=== PATIENT | male | born 1935 | race Caucasian/White ===

== ENCOUNTER 2016-09-04 15:21 | Inpatient (IN) | payer MEDICARE ==
[~2016-09-04] VITALS: Ht 162.6 cm; Wt 55.1 kg
[2016-09-04 15:30] VITALS: BP 180/95; PULSE 142; RESP 20; TEMP 98.7; O2SAT 92
[2016-09-04] MEDS ORDERED: DILTIAZEM HCL 25 MG/5 ML VIAL IV ONE ×2 (15:45→16:45)
[2016-09-04] MEDS ORDERED: SODIUM CHLORIDE 0.9% FLUSH 10 ML FLUSH IVF PRN (15:45)
--- NOTE | 2016-09-04 15:47 | PD ---
HPI Chief Complaint: Fall Time Seen by Provider: 15:42 Travel History International Travel<30 days: No Contact w/Intl Traveler<30days: No Traveled to known affect area: No History of Present Illness HPI Patient comes in by EMS from his primary care physician's office after having found a questionable C2 fracture on x-ray. Patient reportedly had a mechanical fall 4 days ago landing on his face. Patient is having excruciating pain in his neck more on the left than the right since the fall. Patient also reporting pain over his nasal bone. Patient denies any radiation of the pain. Denies any chest pain, shortness of breath, headache, numbness or tingling or , loss of bowel or bladder, chest pain, shortness of breath, loss of consciousness, nausea, vomiting, abdominal pain, or back pain. EMS noted en route patient. A. fib with RVR. Patient currently has a pacemaker and defibrillator. Patient denies any symptoms from this or noting his defibrillator to fire. Patient did drive himself to his primary care doctor's office today. Patient thinks his scanner supervisor is Dr. Doan but is uncertain. Patient does not know any of his medication, but thinks he takes 2 low-dose aspirin daily. Patient uncertain of all his medical history. PFSH Past Medical History Arthritis: No Social History Tobacco Use: No Substance Use: No Allergies-Medications (Allergen,Severity, Reaction): Coded Allergies: No Known Allergies (Unverified , 09/04/16) Review of Systems ROS Limitations: Poor Historian Except as stated in HPI: all other systems reviewed are Neg Physical Exam Exam Limitations: Poor Historian Narrative GENERAL: Well-developed, well nourished, in no acute distress, and non-ill appearing. SKIN: Superficial abrasion noted right forehead and nasal bridge. HEAD: Atraumatic. Normocephalic. EYES: Pupils equal and round. EOMI. No scleral icterus. No injection or drainage. ENT: No nasal bleeding or discharge. Mucous membranes pink and moist. NECK: Trachea midline. C-collar in place. CARDIOVASCULAR: Irregular rate and rhythm. No murmur appreciated. RESPIRATORY: No accessory muscle use. No respiratory distress. Clear to auscultation. Breath sounds equal bilaterally. MUSCULOSKELETAL: No obvious deformities. No clubbing. No cyanosis. No edema. Full range of motion. Shoulder:FROM equal BL with passive flexion, extension, Abduction, Adduction, internal/external rotation, and pronation/supination. Sensation equal BL deltoid muscles. Pulses equal BL distal to injury. Capillary refill less than 2 seconds distal to injury and equal BL. FROM distal to injury and equal BL. Strength distal to injury equal BL. NV intact distal to injury equal BL. Flexion and extension of thumb equal BL. Equal strength and movement with abduction/adductions of BL fingers. Title I Director strength equal BL. NEUROLOGICAL: Awake and alert. No obvious cranial nerve deficits. Motor grossly within normal limits. Normal speech. PSYCHIATRIC: Appropriate mood and affect; insight and judgment normal. Data Data Last Documented VS Vital Signs Date Time Temp Pulse Resp B/P Pulse Ox O2 Delivery O2 Flow Rate FiO2 09/04/16 16:55 Nasal Cannula 2 09/04/16 16:51 97 20 134/76 92 09/04/16 15:30 98.7 Orders Electrocardiogram (09/04/16 15:34) Basic Metabolic Panel (Bmp) (09/04/16 15:34) Complete Blood Count With Diff (09/04/16 15:34) Magnesium (Mg) (09/04/16 15:34) Ckmb (Isoenzyme) Profile (09/04/16 15:34) Troponin I (09/04/16 15:34) Act Partial Throm Time (Ptt) (09/04/16 15:34) Prothrombin Time / Inr (Pt) (09/04/16 15:34) Urinalysis - C+S If Indicated (09/04/16 15:34) Chest, Single Ap (09/04/16 15:34) Ct Brain W/O Iv Contrast(Rout) (09/04/16 15:34) Ct Cerv Spine W/O Contrast (09/04/16 15:34) Ecg Monitoring (09/04/16 15:34) Iv Access Insert/Monitor (09/04/16 15:34) Oximetry (09/04/16 15:34) Sodium Chloride 0.9% Flush (Ns Flush) (09/04/16 15:45) Ct Facial Bones W/O Iv Cont (09/04/16 ) Diltiazem Inj (Cardizem Inj) (09/04/16 15:45) Brogue J Collar (09/04/16 ) Brace Brogue Collar (09/04/16 ) Diltiazem Inj (Cardizem Inj) (09/04/16 16:45) Collar [place] (09/04/16 ) Consult Neurosurgery (09/04/16 ) (Hub Use Only)Inp Phy Cons/Ref (09/04/16 ) Mri C Spine W/O Contrast (09/04/16 ) Diltiazem Inj (Cardizem Inj) (09/04/16 17:15) Admit Order (Ed Use Only) (09/04/16 17:33) Diltiazem (Cardizem) (09/04/16 18:00) Consult Cardiology (09/04/16 ) Labs Laboratory Tests Test 09/04/16 15:41 White Blood Count 6.2 TH/MM3 Red Blood Count 3.72 MIL/MM3 Hemoglobin 11.8 GM/DL Hematocrit 36.6 % Mean Corpuscular Volume 98.4 FL Mean Corpuscular Hemoglobin 31.8 PG Mean Corpuscular Hemoglobin 32.3 % Concent Red Cell Distribution Width 14.1 % Platelet Count 109 TH/MM3 Mean Platelet Volume 8.5 FL Neutrophils (%) (Auto) 74.3 % Lymphocytes (%) (Auto) 15.5 % Monocytes (%) (Auto) 7.2 % Eosinophils (%) (Auto) 2.3 % Basophils (%) (Auto) 0.7 % Neutrophils # (Auto) 4.6 TH/MM3 Lymphocytes # (Auto) 1.0 TH/MM3 Monocytes # (Auto) 0.5 TH/MM3 Eosinophils # (Auto) 0.1 TH/MM3 Basophils # (Auto) 0.0 TH/MM3 CBC Comment DIFF FINAL Differential Comment Prothrombin Time 12.3 SEC Prothromb Time International 1.1 RATIO Ratio Activated Partial 28.1 SEC Thromboplast Time Sodium Level 140 MEQ/L Potassium Level 3.8 MEQ/L Chloride Level 108 MEQ/L Carbon Dioxide Level 22.8 MEQ/L Anion Gap 9 MEQ/L Blood Urea Nitrogen 21 MG/DL Creatinine 1.26 MG/DL Estimat Glomerular Filtration 55 ML/MIN Rate Random Glucose 136 MG/DL Calcium Level 9.3 MG/DL Magnesium Level 2.2 MG/DL Total Creatine Kinase 83 U/L Troponin I 0.07 NG/ML MDM Medical Decision Making Medical Screen Exam Complete: Yes Emergency Medical Condition: Yes Interpretation(s) EKG reviewed by Dr. Sneed shows atrial fibrillation with RVR with a ventricular rate of 126. Differential Diagnosis Fracture, sprain, arthritis, A. fib with RVR, electrolyte abnormality, other Narrative Course Discussed patient with Dr. Sneed who recommends placing the patient in Brogue J collar prior to CT results giving 10 mg of Cardizem IV. 1630 patient's heart rates of between 90 and 110. Discussed patient with Dr. Sneed who recommended given patient another 5 mg of Cardizem. Pacemaker was interrogated by [facility] patient is only paced approximately 65 % of the time over the past year. Patient's exam. Initial laboratory radiologic studies were obtained and reviewed. Discussed all findings and plan care of Dr. Sneed who is in agreement with plan of and disposition. Discussed all planes and plan care of patient is agreeable for admission. All questions were answered. Patient remained stable throughout ED course. Physician Communication Physician Communication 1640 discussed patient with Mana PEREZ for Dr. Degroot. Who recommends having patient placed in [facility] with consult to them. [address] Garcia who is agreeable to the patient to Dr. Godfrey requested that cardiology be contacted regarding patient's A. fib with RVR. [address] Cormier, scanner supervisor education faculty member for [facility], recommends giving the patient 60 mg of Cardizem every 6 hours (instead of the Cardizem drip ) and does not recommend any anticoagulation at the moment. Diagnosis Primary Impression: Odontoid fracture Qualified Code: S12.100A - Odontoid fracture, closed, initial encounter Additional Impression: Atrial fibrillation with RVR Admitting Information Admitting Physician Requests: Admit Condition: Stable Eddie Miranda September 04, 2016 15:47
[2016-09-04 16:01] VITALS: BP 167/50; PULSE 90; RESP 20; O2SAT 99
[2016-09-04 16:22] LABS: BICARBONATE 22.8 MEQ/L (21.0-32.0); MAGNESIUM 2.2 MG/DL (1.5-2.5); POTASSIUM 3.8 MEQ/L (3.5-5.1)
--- NOTE | 2016-09-04 16:28 | RADRPT ---
EXAM DATE/TIME: 09/04/2016 16:01 [facility] COMPARISON: No previous studies available for comparison. INDICATIONS : Trauma; pain after fall. RADIATION DOSE: 56.35 CTDIvol (mGy) MEDICAL HISTORY : None SURGICAL HISTORY : None. ENCOUNTER: Initial ACUITY: 1 day PAIN SCALE: 5/10 LOCATION: cranial TECHNIQUE: Multiple contiguous axial images were obtained of the head. Using automated exposure control and adj ustment of the mA and/or kV according to patient size, radiation dose was kept as low as reasonably a chievable to obtain optimal diagnostic quality images. FINDINGS: Significant enlargement is noted of the CSF spaces. There are no focal abnormalities to suggest the presence of an acute stroke or hemorrhage. Small lacu ne is identified in the head of the right caudate nucleus. There are no extra-axial abnormalities. CONCLUSION: Aging brain with generalized volume loss. No evidence of acute infarct, hemorrhage, mass or edema. Layo Damon MD on September 04, 2016 at 16:24 Board Certified Radiologist. This report was verified electronically.
[2016-09-04 16:29] LABS: APTT (PATIENT) 28.1 SEC (24.3-30.1); INTERNATIONAL NORMALIZED RATIO 1.1 RATIO; PROTHROMBIN TIME - PATIENT 12.3 SEC (9.8-11.6)
--- NOTE | 2016-09-04 16:29 | RADRPT ---
EXAM DATE/TIME: 09/04/2016 16:03 [facility] COMPARISON: No previous studies available for comparison. INDICATIONS : Trauma; pain after fall. RADIATION DOSE: 18.66 CTDIvol (mGy) MEDICAL HISTORY : None SURGICAL HISTORY : None. ENCOUNTER: Initial ACUITY: 1 day PAIN SCALE: 5/10 LOCATION: Bilateral neck TECHNIQUE: Volumetric scanning of the cervical spine was performed. Multiplanar reconstructions in the sagittal, coronal and oblique axial planes were performed. Using automated exposure control and adjustment o f the mA and/or kV according to patient size, radiation dose was kept as low as reasonably achievable to obtain optimal diagnostic quality images. FINDINGS: VERTEBRAE: There is a fracture of the odontoid process of C2 with 1-2 mm displacement. No evidence of posterior shift of the fracture fragment. ALIGNMENT: No evidence of subluxation. Bilateral pleural effusions. C2-C3: Broad-based disc bulge. Facet arthrosis. Central canal diameter within normal limits. C3-C4: Severe left-sided facet arthrosis. Moderate left neural foraminal narrowing. Central canal diameter w ithin normal limits. C4-C5: Severe left-sided facet arthrosis. Mild left neural foraminal narrowing. Central shallow disc protrus ion. Mild central canal narrowing. C5-C6: Bilateral facet arthrosis. Mild bilateral neural foraminal narrowing. Broad-based disc osteophyte com plex. Mild central canal narrowing. C6-C7: Broad-based disc osteophyte complex. Bilateral facet arthrosis. Mild bilateral neural foraminal narro wing. Mild central canal narrowing. C7-T1: No evidence of focal disc protrusion. Central canal normal diameter. Neural foraminal diameters withi n normal limits. CONCLUSION: 1. Minimally displaced fracture through the base of the odontoid process of C2. No posterior displace ment. 2. Multilevel degenerative findings. Jovan Mckinnon MD on September 04, 2016 at 16:19 Board Certified Radiologist. This report was verified electronically.
--- NOTE | 2016-09-04 16:34 | RADRPT ---
EXAM DATE/TIME: 09/04/2016 16:04 [facility] COMPARISON: No previous studies available for comparison. INDICATIONS : Trauma; pain after fall. RADIATION DOSE: 40.23 CTDIvol (mGy) MEDICAL HISTORY : None SURGICAL HISTORY : None. ENCOUNTER: Initial ACUITY: 1 day PAIN SCORE: 5/10 LOCATION: Bilateral facial TECHNIQUE: Volumetric scanning of the facial bones was performed. Using automated exposure control and adjustme nt of the mA and/or kV according to patient size, radiation dose was kept as low as reasonably achiev able to obtain optimal diagnostic quality images. FINDINGS: ORBITS: The orbital and infraorbital osseous structures are intact. The retroconal structures have a normal configuration. No radiopaque foreign bodies are seen. NASAL BONE: The nasal bone and maxillary spine are intact ZYGOMATIC ARCHES: Symmetric without evidence of fracture. SINUSES: The maxillary, ethmoid and frontal sinuses are intact. No air-fluid levels seen. NASAL CAVITY: The nasal septum is intact and midline. The lacrimal ducts are intact. SOFT TISSUES: No radiopaque foreign bodies seen. CONCLUSION: No evidence of fracture. Jovan Mckninon MD on September 04, 2016 at 16:29 Board Certified Radiologist. This report was verified electronically.
[2016-09-04 16:51] VITALS: BP 134/76; PULSE 97; RESP 20; O2SAT 92
--- NOTE | 2016-09-04 16:54 | PD.CONS ---
(Vik Degroot MD) HPI Consult Requested By Primary Care Physician Linda Lorenzana MD (Vik Degroot MD) Service Neurosurgery Consult Requested By ED physician Reason for Consult C2 fracture History of Present Illness Mr. Head is a 81-year-old male who presents today to the emergency room for evaluation of C2 fracture. The patient reports he fell 4 days ago at home and landed on his face. He contacted his primary care physician who ordered x-rays of the cervical spine. The x-ray showed possible odontoid fracture. He is currently complaining of cervical pain. He denies any pain, paresthesias, or focal weakness in his upper or lower extremities. He has been placed on a Nome J collar. He also has in A. fib RVR, he has a pacemaker placement. CT of the cervical spine shows a C2 fracture. CT Head negative for acute intracranial pathology. (Mili Merino) Review of Systems Constitutional: DENIES: Diaphoretic episodes, Fatigue, Fever, Weight gain, Weight loss, Chills, Dizziness, Change in appetite, Night Sweats Endocrine: DENIES: Heat/cold intolerance, Polydipsia, Polyuria, Polyphagia Eyes: DENIES: Blurred vision, Diplopia, Eye inflammation, Eye pain, Vision loss , Photosensitivity, Double Vision Ears, nose, mouth, throat: DENIES: Tinnitus, Hearing loss, Vertigo, Nasal discharge, Oral lesions, Throat pain, Hoarseness, Ear Pain, Running Nose, Epistaxis, Sinus Pain, Toothache, Odynophagia Respiratory: DENIES: Apneas, Cough, Snoring, Wheezing, Hemoptysis, Sputum production, Shortness of breath Cardiovascular: COMPLAINS OF: Palpitations, DENIES: Chest pain, Syncope, Dyspnea on Exertion, PND, Lower Extremity Edema, Orthopnea, Claudication Gastrointestinal: DENIES: Abdominal pain, Black stools, Bloody stools, Constipation, Diarrhea, Nausea, Vomiting, Difficulty Swallowing, Anorexia Genitourinary: DENIES: Sexual dysfunction, Urinary frequency, Urinary incontinence, Urgency, Hematuria, Dysuria, Nocturia, Penile Discharge, Testicular Pain, Testicular Swelling Musculoskeletal: COMPLAINS OF: Neck pain, DENIES: Joint pain, Muscle aches, Stiffness, Joint Swelling, Back pain Integumentary: DENIES: Abnormal pigmentation, Nail changes, Pruritus, Rash Hematologic/lymphatic: DENIES: Bruising, Lymphadenopathy Immunologic/allergic: DENIES: Eczema, Urticaria Neurologic: COMPLAINS OF: Headache, DENIES: Abnormal gait, Localized weakness , Paresthesias, Seizures, Speech Problems, Tremor, Poor Balance Psychiatric: DENIES: Anxiety, Confusion, Mood changes, Depression, Hallucinations, Agitation, Suicidal Ideation, Homicidal Ideation, Delusions ( Vik Degroot MD) Past Family Social History Allergies: Coded Allergies: MRI PRECAUTION (Verified Adverse Reaction, Severe, [employer] Devika ROSARIO DR. Defibrillator is NOT MRI Conditional., 09/05/16) [employer] Devika ROSARIO DR. Defibrillator is NOT MRI Conditional. Active Ordered Medications Current Medications Sodium Chloride (NS Flush) 2 ml UNSCH PRN IVF FLUSH AFTER USING IV ACCESS; Start 09/04/16 at 15:45 Diltiazem HCl (Cardizem Inj) 10 mg ONCE ONCE IV Last administered on 09/04/16 16:10; Start 09/04/16 at 15:45; Stop 09/04/16 at 15:46; Status DC Diltiazem HCl 5 mg 5 mg ONCE ONCE IV Last administered on 09/04/16t 17:10; Start 09/04/16 at 16:45; Stop 09/04/16 at 16:46; Status DC Diltiazem HCl/ Sodium Chloride (Cardizem Inj/NS Inj) 125 ml @ 0 mls/hr TITRATE IV ; Start 09/04/16 at 17:15 (Vik Degroot MD) Past Medical History Atrophic fibrillation Coronary artery disease Chronic renal disease Hyperlipidemia Cardiomyopathy Type 2 diabetes mellitus Pulmonary hypertension Past Surgical History Pacemaker CABG 3 Mitral valve replacement Cataract surgery Esophageal dilations Reported Medications Reviewed in EMR Family History Noncontributory Social History He lives alone with his dog, his was recently placed in the [facility]. He denies current tobacco use. He drinks one glass of wine at dinnertime. (Mili Merino) Physical Exam Vital Signs Vital Signs Date Time Temp Pulse Resp B/P Pulse Ox O2 Delivery O2 Flow Rate FiO2 09/04/16 16:01 90 20 167/50 99 Nasal Cannula 2 09/04/16 15:30 98.7 142 20 180/95 92 Physical Exam Mr Head is alert, awake and oriented to time, place and person. Speech is fluent. GCS 15 Cranial nerve examination demonstrates the pupils to be equal, round, and reactive to light. Extra-ocular movements are intact. Facial motor and sensory function are normal and symmetrical. Gross hearing is intact, bilaterally. The uvula is midline and elevates symmetrically with the soft palate. Sternocleidomastoid and trapezius muscles have normal and symmetrical strength. Other cranial nerves are intact. Cervical spine is supported by a Maury collar Muscle testing reveals normal bulk and tone overall without rigidity, spasticity , fasciculations, or atrophy. Muscle strength is 5/5 in all muscle groups of both upper extremities including deltoid, biceps, triceps, brachioradialis, wrist extension and elevator operator freight. In the lower extremities, strength is 5/5 in both iliopsoas, quadriceps, hamstrings, plantar flexion, dorsiflexion, and extensor hallicus longus. Sensory examination is intact to light touch and sharp/dull discrimination in both the upper and lower extremities, symmetrically. Deep tendon reflexes are 2+ and symmetrical in the biceps, triceps, and brachioradialis, bilaterally, in the upper extremities. In the lower extremities , the patellar and Achilles are 2+, bilaterally. There is a bilateral plantar flexion response. Hoffmanns sign is negative. There is no clonus or other abnormal reflexes noted. Cerebellar examination is intact to [id number] test, rapid rhythmic alternating motion. There is no dysmetria, dysdiadochokinesia, truncal ataxia Laboratory Laboratory Tests Test 09/04/16 15:41 Prothrombin Time 12.3 Prothromb Time International 1.1 Ratio Activated Partial 28.1 Thromboplast Time Sodium Level 140 Potassium Level 3.8 Chloride Level 108 Carbon Dioxide Level 22.8 Anion Gap 9 Blood Urea Nitrogen 21 Creatinine 1.26 Estimat Glomerular Filtration 55 Rate Random Glucose 136 Calcium Level 9.3 Magnesium Level 2.2 Total Creatine Kinase 83 Troponin I 0.07 (Vik Degroot MD) Result Diagram: 09/04/16 1541 Imaging Last Impressions Head CT 09/04/16 1534 Signed Impressions: Service Date/Time: Sunday, September 04, 2016 16:01 - CONCLUSION: Aging brain with generalized volume loss. No evidence of acute infarct, hemorrhage, mass or edema. Layo Damon MD Chest X-Ray 09/04/16 1534 Signed Impressions: Service Date/Time: Sunday, September 04, 2016 15:48 - CONCLUSION: Diffuse interstitial lung disease characteristic of pulmonary edema. Mild cardiomegaly and small bilateral effusions. AICD. Status post CABG. Layo Damon MD Cervical Spine CT 09/04/16 1534 Signed Impressions: Service Date/Time: Sunday, September 04, 2016 16:03 - CONCLUSION: 1. Minimally displaced fracture through the base of the odontoid process of C2. No posterior displacement. 2. Multilevel degenerative findings. Jovan Mckinnon MD Maxillofacial CT 09/04/16 0000 Signed Impressions: Service Date/Time: Sunday, September 04, 2016 16:04 - CONCLUSION: No evidence of fracture. Jovan Mckinnon MD (Vik Degroot MD) Attending Statement I reviewed her clinical and radiological studies. neuro checks in a serial fashion. Placement of ICP monitor is not indicated at this time. Non surgical management. C2 fracture. Likely any stable. Brace the spine with the Nome J collar. Obtain MRI cervical spine. I have discussed with the patient the alternative treatment of stabilization of the cervical spine with a halo brace. We will defer further recommendations to upon completion of her workup Atrial fibrillation with rapid RVR. Defer cardiac management to derrick builder, Dr. Scott Respiratory. pulmonary toilette, nasotracheal suction, and breathing treatments with nebulizers. PT and OT eval Nutrition. Oral diet Renal. monitor closely urine output, BUN and creatinine Endocrine. Monitor serial Acu checks and SSI for tight control ID monitor for signs of infection Protonix for stress ulcer prophylaxis Rolo hose and SCD's for DVT prophylaxis (Vik Degroot MD) Vik Degroot MD September 04, 2016 16:54 Mili Merino September 05, 2016 10:29
--- NOTE | 2016-09-04 16:58 | RADRPT ---
EXAM DATE/TIME: 09/04/2016 15:48 [facility] COMPARISON: No previous studies available for comparison. INDICATIONS : Syncopal episode today. Patient fell. MEDICAL HISTORY : A-fib. SURGICAL HISTORY : Pacemaker. ENCOUNTER: Initial ACUITY: 1 day PAIN SCORE: Non-responsive. LOCATION: Bilateral chest FINDINGS: Diffuse interstitial infiltration characteristic of pulmonary edema is noted. There is consolidating airspace disease in the left base. Heart is mildly enlarged and there is evidence of previous CABG. Small bilateral fusions are present. AICD device is noted in place. CONCLUSION: Diffuse interstitial lung disease characteristic of pulmonary edema. Mild cardiomegaly and small bilateral effusions. AICD. Status post CABG. Layo Damon MD on September 04, 2016 at 16:55 Board Certified Radiologist. This report was verified electronically.
[2016-09-04] MEDS ORDERED: DILTIAZEM INJ 125 MG in SODIUM CHLORIDE 0.9% INJ 100 ML IV SCH (17:15)
[2016-09-04 17:20] LABS: AUTOMATED NEUTROPHIL # 4.6 TH/MM3 (1.8-7.7); BASOPHIL % 0.7 % (0.0-2.0); EOSINOPHIL # 0.1 TH/MM3 (0-0.4); EOSINOPHIL % 2.3 % (0.0-4.0); HEMATOCRIT 36.6 % (39.0-51.0); HEMO FLAGS DIFF FINAL; LYMPH % 15.5 % (9.0-44.0); MEAN CELL VOLUME 98.4 FL (80.0-100.0); MEAN CORPUSCULAR HEMOGLOBIN 31.8 PG (27.0-34.0); MEAN CORPUSCULAR HGB CONC 32.3 % (32.0-36.0); MONO % 7.2 % (0.0-8.0); NEUT % 74.3 % (16.0-70.0); PLATELET COUNT 109 TH/MM3 (150-450); RED BLOOD COUNT 3.72 MIL/MM3 (4.50-5.90); RED CELL DISTRIBUTION WIDTH 14.1 % (11.6-17.2); WHITE BLOOD COUNT 6.2 TH/MM3 (4.0-11.0)
[2016-09-04] MEDS: DILTIAZEM HCL 60 MG TAB PO SCH ×2 (18:41→23:46)
[2016-09-04 19:50] VITALS: BP 134/82; PULSE 92; RESP 18; O2SAT 98
--- NOTE | 2016-09-04 20:03 | HHI.HP ---
HPI Service [facility] Hospitalists Primary Care Physician Linda Lorenzana MD Admission Diagnosis odontoid fracture, A. fib with RVR Chief Complaint: Neck pain status post fall, sent by primary care physician for possible cervical spine fracture Travel History International Travel<30 Days: No Contact w/Intl Traveler <30 Da: No Traveled to Known Affected Are: No History of Present Illness Patient comes in by EMS from his primary care physician's office after having found a questionable C2 fracture on x-ray. Patient reportedly had a mechanical fall at his home 4 days ago landing on his face. Patient reports that he stumbled on a step going from one room to another in his home. No loss of consciousness. No loss of bowel or bladder function. He was having significant pain yesterday and last night so he contacted his primary care physician who ordered a cervical spine x-ray which demonstrated questionable odontoid fracture. He was therefore referred to the ER for evaluation. Patient is having excruciating pain in the left posterior neck since the fall. Patient also reporting pain over his nasal bone. Patient denies any radiation of the pain. Denies any chest pain, vision change, shortness of breath, headache, numbness or tingling or, loss of bowel or bladder, chest pain, shortness of breath, loss of consciousness, nausea, vomiting, abdominal pain, or back pain. In route to the hospital it was noted that patient was in A. fib with RVR. He has known history of atrial fibrillation and apparently failed ablation procedure in the past. Patient currently has a pacemaker and defibrillator. Patient denies any symptoms from this or noting his defibrillator to fire. Patient did drive himself to his primary care doctor's office today. Patient thinks his [employer] consultant is Dr. Doan but is uncertain. On further questioning , patient reports that his [employer] b[employer] consultant is actually Dr. Scott that he apparently has seen Dr. Doan in the past. Patient uncertain of all his medical history, but was able to provide me with his primary care physician's name and some of his general medical issues. He reports that he lives alone with the exception of his pet dog. His had to go into a [facility] approximately 3 months ago. Review of Systems Constitutional: COMPLAINS OF: Fatigue Endocrine: DENIES: Heat/cold intolerance, Polydipsia, Polyuria, Polyphagia Eyes: DENIES: Blurred vision, Diplopia, Eye inflammation, Eye pain, Vision loss , Photosensitivity, Double Vision Ears, nose, mouth, throat: DENIES: Tinnitus, Hearing loss, Vertigo, Nasal discharge, Oral lesions, Throat pain, Hoarseness, Ear Pain, Running Nose, Epistaxis, Sinus Pain, Toothache, Odynophagia Respiratory: DENIES: Apneas, Cough, Snoring, Wheezing, Hemoptysis, Sputum production, Shortness of breath Cardiovascular: DENIES: Chest pain, Palpitations, Syncope, Dyspnea on Exertion , PND, Lower Extremity Edema, Orthopnea, Claudication Gastrointestinal: DENIES: Abdominal pain, Black stools, Bloody stools, BRB per rectum, Constipation, Diarrhea, GERD, Nausea, Reflux, Vomiting, Difficulty Swallowing, Anorexia, See HPI Musculoskeletal: COMPLAINS OF: Joint pain, Back pain, Neck pain Hematologic/lymphatic: COMPLAINS OF: Bruising Neurologic: COMPLAINS OF: Poor Balance, DENIES: Abnormal gait, Headache, Localized weakness, Paresthesias, Seizures, Speech Problems, Tremor Past Family Social History Past Medical History Macular degeneration Aortic atherosclerosis Atrial fibrillation Chronic disease stage III Elevated PSA GERD Hyperlipidemia Ischemic cardiomyopathy with EF of 25-30% on echo done June 2015 Pulmonary hypertension Type 2 diabetes with nephropathy Past Surgical History Coronary artery bypass graft 3 vessels in 2006 Mitral valve replacement with bovine prosthesis June 2006 Cataract surgery bilaterally Esophageal dilatation Reported Medications (Obtained from outpatient electronic health record) Aspirin 81 mg a day Atorvastatin 80 mg a day Dorzolamide/atenolol eyedrops 1 drop both eyes twice a day Furosemide 20 mg twice a day Latanoprost eyedrops 1 drop both eyes at bedtime Lisinopril 5 mg a day Metoprolol 50 mg twice a day Nitrostat 0.4 mg sublingual when necessary chest pain Warfarin 4 mg Saturday and Saturday; 2 mg all other days of the week Allergies: Coded Allergies: No Known Allergies (Unverified , 09/04/16) Family History Noncontributory Social History Lives alone with his dog for 43 years, his recently was transitioned to a senior care facility No tobacco in 3 years for back to that smoked 1- 1 1/2 pack per day for nearly 60 years Drinks approximately 1 glass of wine each night with dinner Originally from [place], has been in the area 14 years 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 Alert SKIN: Abrasions up on the bridge of the nose and the frontal scalp, Cool and dry. HEAD: Abrasions and ecchymosis on the frontal scalp and nose is noted. Normocephalic. No temporal or scalp tenderness. EYES: Pupils equal round and reactive. Extraocular motions intact. No scleral icterus. No injection or drainage. ENT: Nose without bleeding, purulent drainage or septal hematoma. Airway patent. NECK: Neck brace in place. Trachea midline. No JVD or lymphadenopathy. Somewhat limited examination of the neck but patient does report pain in the posterior left neck. CARDIOVASCULAR: Irregularly irregular with a rate in the upper 90s to low 100s. RESPIRATORY: Clear to auscultation with diminished breath sounds at the bases. No wheezes, rales, or rhonchi. GASTROINTESTINAL: Abdomen soft, non-tender, nondistended. No hepato-splenomegaly , or palpable masses. No guarding. MUSCULOSKELETAL: Extremities without clubbing, cyanosis, or edema. No joint tenderness, effusion, or edema noted. No calf tenderness. NEUROLOGICAL: Awake and alert. Cranial nerves II through XII intact. Motor and sensory grossly within normal limits. Five out of 5 muscle strength in all muscle groups. Normal speech. Laboratory Laboratory Tests Test 09/04/16 15:41 White Blood Count 6.2 Red Blood Count 3.72 Hemoglobin 11.8 Hematocrit 36.6 Mean Corpuscular Volume 98.4 Mean Corpuscular Hemoglobin 31.8 Mean Corpuscular Hemoglobin 32.3 Concent Red Cell Distribution Width 14.1 Platelet Count 109 Mean Platelet Volume 8.5 Neutrophils (%) (Auto) 74.3 Lymphocytes (%) (Auto) 15.5 Monocytes (%) (Auto) 7.2 Eosinophils (%) (Auto) 2.3 Basophils (%) (Auto) 0.7 Neutrophils # (Auto) 4.6 Lymphocytes # (Auto) 1.0 Monocytes # (Auto) 0.5 Eosinophils # (Auto) 0.1 Basophils # (Auto) 0.0 CBC Comment DIFF FINAL Differential Comment Prothrombin Time 12.3 Prothromb Time International 1.1 Ratio Activated Partial 28.1 Thromboplast Time Sodium Level 140 Potassium Level 3.8 Chloride Level 108 Carbon Dioxide Level 22.8 Anion Gap 9 Blood Urea Nitrogen 21 Creatinine 1.26 Estimat Glomerular Filtration 55 Rate Random Glucose 136 Calcium Level 9.3 Magnesium Level 2.2 Total Creatine Kinase 83 Troponin I 0.07 Result Diagram: 09/04/16 1541 09/04/16 1541 Imaging Last [address] 09/04/16 1534 Signed Impressions: Service Date/Time: Sunday, September 04, 2016 16:01 - CONCLUSION: Aging brain with generalized volume loss. No evidence of acute infarct, hemorrhage, mass or edema. Layo Damon MD Chest X-Ray 09/04/16 1534 Signed Impressions: Service Date/Time: Sunday, September 04, 2016 15:48 - CONCLUSION: Diffuse interstitial lung disease characteristic of pulmonary edema. Mild cardiomegaly and small bilateral effusions. AICD. Status post CABG. Layo Damon MD Cervical Spine CT 09/04/16 1534 Signed Impressions: Service Date/Time: Sunday, September 04, 2016 16:03 - CONCLUSION: 1. Minimally displaced fracture through the base of the odontoid process of C2. No posterior displacement. 2. Multilevel degenerative findings. Jovan Mckinnon MD Maxillofacial CT 09/04/16 0000 Signed Impressions: Service Date/Time: Sunday, September 04, 2016 16:04 - CONCLUSION: No evidence of fracture. Jovan Mckinnon MD Assessment and Plan Problem List: (1) Odontoid fracture Status: Acute Plan: Management per neurosurgery. Neck brace will remain in place for now. (2) Atrial fibrillation with RVR Status: Acute Plan: Rate better controlled now. He has been converted to oral Cardizem after receiving 2 IV doses of Cardizem. We'll monitor on telemetry. Cardiology has been consult. INR is subtherapeutic as it has been on several occasions recently as an outpatient. However given his current neck fracture we'll hold off on anticoagulation in case surgical intervention needed. (3) Troponin level elevated Status: Acute Plan: Possibly demand mediated given his tachyarrhythmia. Patient denies any chest pain or increased shortness of breath. We'll follow cardiac enzymes. Cardiology has been consult. Resume his beta tate. (4) Hypertension Status: Chronic Plan: We'll resume his beta tate as blood pressure allows. Oral Cardizem should help control blood pressure as well. (5) Diabetic nephropathy associated with type 2 diabetes mellitus Status: Chronic Plan: Apparently diet controlled. A1c was 6.0 in May. We'll check Accu-Cheks twice a day for now. Discussed Condition With Patient and emergency room healthcare provider. Physician Certification 2 Midnight Certification Type: Admission for Inpatient Services Order for Inpatient Services The services are ordered in accordance with Medicare regulations or non- Medicare payer requirements, as applicable. In the case of services not specified as inpatient-only, they are appropriately provided as inpatient services in accordance with the 2-midnight benchmark. Estimated LOS (days): 2 days is the estimated time the patient will need to remain in the hospital, assuming treatment plan goals are met and no additional complications. Post-Hospital Plan: Not yet determined Problem Qualifiers (1) Odontoid fracture: Qualified Code: S12.100A - Odontoid fracture, closed, initial encounter Everett Garcia MD PhD September 04, 2016 20:03
[2016-09-04] MEDS ORDERED: POTASSIUM CHLORIDE 10 MEQ CONTROLLED RELEASE TAB PO ONE (21:00)
[2016-09-04] MEDS ORDERED: ATORVASTATIN 80 MG TAB PO ONE (21:00)
[2016-09-04 21:39] VITALS: BP 132/72; PULSE 88; RESP 18; O2SAT 99
[2016-09-04] MEDS: DORZOLAMIDE/TIMOLOL OPTH SOLN 10 ML BTL EACH EYE SCH (22:34)
[2016-09-04] MEDS: LATANOPROST 0.005% OPHT SOLN 2.5 ML BTL EACH EYE SCH (22:35)
[2016-09-04] MEDS: METOPROLOL TARTRATE 25 MG TAB PO SCH (22:35)
[2016-09-04 22:47] LABS: BLOOD, URINE NEG (NEG); COMMENT (UR) CULT NOT INDICATED; CULTURE IF INDICATED CULT NOT INDICATED; GLUCOSE,URINE NEG (NEG); HYALINE CAST, URINE 3 /lpf (RARE); KETONE, URINE NEG (NEG); MUCUS URINE FEW /lpf (OCC); NITRITE,URINE NEG (NEG); PH, URINE 6.5 (5.0-8.5); SQUAMOUS EPITHELIAL CELL URINE <1 /hpf (0-5); URINE COLOR YELLOW (YELLW/STRAW)
[2016-09-04 23:00] VITALS: BP 109/59; PULSE 73; RESP 11; TEMP 98.1; O2SAT 96
[2016-09-04] MEDS: ACETAMINOPHEN/HYDROcodone 325 MG/5 MG TAB PO PRN (23:47)
[2016-09-05] VITALS (13 sets, daily range): BP systolic 109–158; BP diastolic 61–81; PULSE 68–98; RESP 16–24; TEMP 97.9–98.9; O2SAT 92–99
[2016-09-05 04:35] LABS: AUTOMATED NEUTROPHIL # 7.1 TH/MM3 (1.8-7.7); BASOPHIL # 0.1 TH/MM3 (0-0.2); BASOPHIL % 0.9 % (0.0-2.0); EOSINOPHIL # 0.1 TH/MM3 (0-0.4); EOSINOPHIL % 1.3 % (0.0-4.0); HEMATOCRIT 35.6 % (39.0-51.0); HEMO FLAGS DIFF FINAL; LYMPH % 7.7 % (9.0-44.0); LYMPHOCYTE # 0.6 TH/MM3 (1.0-4.8); MEAN CELL VOLUME 96.3 FL (80.0-100.0); MEAN CORPUSCULAR HEMOGLOBIN 32.1 PG (27.0-34.0); MEAN CORPUSCULAR HGB CONC 33.3 % (32.0-36.0); MONO % 5.5 % (0.0-8.0); NEUT % 84.6 % (16.0-70.0); PLATELET COUNT 133 TH/MM3 (150-450); RED CELL DISTRIBUTION WIDTH 13.9 % (11.6-17.2); WHITE BLOOD COUNT 8.4 TH/MM3 (4.0-11.0)
[2016-09-05 05:06] LABS: BICARBONATE 21.9 MEQ/L (21.0-32.0); POTASSIUM 5.5 MEQ/L (3.5-5.1)
--- NOTE | 2016-09-05 05:55 | EKG ---
Date Performed: 09/04/2016 Time Performed: 15:35:13 PTAGE: 81 years EKG: ATRIAL FIBRILLATION WITH RAPID VENTRICULAR RESPONSE WITH ABERRANT CONDUCTION OR VENTRICULAR PREMATURE COMPLEXES LATERAL MYOCARDIAL INFARCTION ABNORMAL ECG NO PREVIOUS TRACING DOCTOR: Tiffany Peres Interpretating Date/Time 09/05/2016 05:55:43
[2016-09-05] MEDS: DILTIAZEM HCL 60 MG TAB PO SCH ×3 (06:58→17:20)
[2016-09-05] MEDS: METOPROLOL TARTRATE 25 MG TAB PO SCH ×2 (08:50→21:00)
[2016-09-05] MEDS: ASPIRIN 81 MG CHEW TAB CHEW SCH (08:50)
[2016-09-05] MEDS: DORZOLAMIDE/TIMOLOL OPTH SOLN 10 ML BTL EACH EYE SCH ×2 (09:00→21:00)
--- NOTE | 2016-09-05 10:10 | MB ---
cc: JONY ALCARAZ MD DATE OF CONSULTATION: 09/05/2016 HISTORY OF PRESENT ILLNESS This is an 81-year-old man who is admitted to the hospital after suffering a mechanical fall 3-4 days ago. He came to the emergency department where x-rays revealed a fracture of C2. He was seen by neurosurgery and placed in a neck brace. It is not anticipated that he will need surgery at this point in time. We have been asked to see him in that when he came in he had an episode of atrial fibrillation with a rapid ventricular response. He has had history of coronary bypass grafting in the past. The patient is a very poor historian and is not sure how long ago it happened. He does have an AICD in place, the first one being implanted eight years ago with a second three years ago. He is unaware of any significant arrhythmia or atrial fibrillation. He denies any chest pain or shortness of breath. When asked about anticoagulants he does recall Coumadin or warfarin but does not recall being on it or reasons for being off. He is currently resting comfortably and in no acute distress. He is very pleasant and is oriented to time and place. PAST MEDICAL HISTORY Otherwise uncertain. We do note from his previous chart that he has had ischemic cardiomyopathy with an EF of 25-30% by an echocardiogram done a year ago, as well as type 2 diabetes and hyperlipidemia. MEDICATIONS Medications at home from the electronic health record include: 1. Aspirin 81, daily. 2. Atorvastatin 80, daily. 3. Furosemide 20, twice a day. 4. Lisinopril 5 mg daily. 5. Metoprolol 50 mg twice a day. 6. Warfarin 4 mg Saturday and Saturday with 2 mg the other days of the week. ALLERGIES None. SOCIAL HISTORY The patient has not smoked for three years. He drinks a glass of wine every day. He does not use recreational drugs. PHYSICAL EXAMINATION GENERAL: He is awake and alert. He is in no acute distress. VITAL SIGNS: Blood pressure 100/70, pulse 70 and paced. NECK: There is no neck vein distension. Carotids are normal. LUNGS: Clear. CARDIOVASCULAR: Regular rate and rhythm. There is an occasional extrasystole. No murmur is noted. EXTREMITIES: No edema. ASSESSMENT AND RECOMMENDATIONS The patient has had a brief run of atrial fibrillation with rapid response with underlying atrial fibrillation and a paced rhythm. At this point in time his INR is 1.2. Until we are certain that he does not need further surgery, will hold off on restarting his warfarin as he is going to be at increased risk for stroke. His cardiovascular status otherwise appears to be stable. Will continue his home medicines as his blood pressure will tolerate as he convalesces here in the hospital. MD VÍCTOR Atkinson/DES /9:44 AM /9:56 AM
--- NOTE | 2016-09-05 10:59 | HHI.NSPN ---
(Mili Merino) Note Status Status: Progress Note (Mili Merino) Interval History Interval History Mr. Head is a 81-year-old male who presents today to the emergency room for evaluation of C2 fracture. The patient reports he fell 4 days ago at home and landed on his face. He contacted his primary care physician who ordered x-rays of the cervical spine. The x-ray showed possible odontoid fracture. He is currently complaining of cervical pain. He denies any pain, paresthesias, or focal weakness in his upper or lower extremities. He has been placed on a [place] J collar. He also is in A. fib RVR, he has a pacemaker placement. CT of the cervical spine shows a C2 fracture. CT Head negative for acute intracranial pathology. 09/05: Unable to obtain an MRI due to pacemaker. Cervical pain stable. Complains of coughing slightly choking when drinking. (Mili Merino) Labs, Micro, & Vital Signs Results Date Time Temp Pulse Resp B/P Pulse Ox O2 Delivery O2 Flow Rate FiO2 09/05/16 09:59 75 09/05/16 08:17 93 Nasal Cannula 3.00 09/05/16 08:00 95 09/05/16 08:00 98.2 94 24 110/81 94 09/05/16 06:00 95 09/05/16 04:00 93 09/05/16 03:00 97.9 93 24 109/61 95 09/05/16 02:00 95 09/05/16 00:47 12 09/05/16 00:00 98 09/04/16 23:00 98.1 73 11 109/59 96 09/04/16 23:00 73 09/04/16 21:39 88 18 132/72 99 Nasal Cannula 2 09/04/16 19:50 92 18 134/82 98 09/04/16 16:55 Nasal Cannula 2 09/04/16 16:51 97 20 134/76 92 Nasal Cannula 2 09/04/16 16:01 90 20 167/50 99 Nasal Cannula 2 09/04/16 15:30 98.7 142 20 180/95 92 09/05/16 07:00 Intake Total 120 ml Output Total 350 ml Balance -230 ml Constitutional Vital Signs Date Time Temp Pulse Resp B/P Pulse Ox O2 Delivery O2 Flow Rate FiO2 09/05/16 09:59 75 09/05/16 08:17 93 Nasal Cannula 3.00 09/05/16 08:00 95 09/05/16 08:00 98.2 94 24 110/81 94 09/05/16 06:00 95 09/05/16 04:00 93 09/05/16 03:00 97.9 93 24 109/61 95 09/05/16 02:00 95 09/05/16 00:47 12 09/05/16 00:00 98 09/04/16 23:00 98.1 73 11 109/59 96 09/04/16 23:00 73 09/04/16 21:39 88 18 132/72 99 Nasal Cannula 2 09/04/16 19:50 92 18 134/82 98 09/04/16 16:55 Nasal Cannula 2 09/04/16 16:51 97 20 134/76 92 Nasal Cannula 2 09/04/16 16:01 90 20 167/50 99 Nasal Cannula 2 09/04/16 15:30 98.7 142 20 180/95 92 09/05/16 07:00 Intake Total 120 ml Output Total 350 ml Balance -230 ml (Mili Merino) Review of Systems/Exam Exam Mr. Head is alert and oriented to name, intermittently confused. Follows commands. Cranial nerve examination: pupils to be equal, round, and reactive to light. Extra-ocular movements are intact. Facial motor are normal and symmetrical. Cervical spine immobilized by a [place] J collar Muscle strength is 5/5 in all muscle groups of both upper extremities including deltoid, biceps, triceps and freezer assistant. In the lower extremities, strength is 5/5 in both iliopsoas, quadriceps, hamstrings, plantar flexion, dorsiflexion. Sensory examination is intact to light touch in both the upper and lower extremities, symmetrically. There is a bilateral plantar flexion response. Hoffmanns sign is negative. There is no clonus or other abnormal reflexes noted. (Mili Merino) Exam Mr. Head is alert and oriented to name, intermittently confused. Follows commands. GCS 14 Cranial nerve examination: pupils to be equal, round, and reactive to light. Extra-ocular movements are intact. Facial motor are normal and symmetrical. Cervical spine immobilized by a [place] J collar Muscle strength is 5/5 in all muscle groups of both upper extremities including deltoid, biceps, triceps and freezer assistant. In the lower extremities, strength is 5/5 in both iliopsoas, quadriceps, hamstrings, plantar flexion, dorsiflexion. Sensory examination is intact to light touch in both the upper and lower extremities, symmetrically. There is a bilateral plantar flexion response. Hoffmanns sign is negative. There is no clonus Cerebellar examination is very limited (Vik Degroot MD) Medications Current Medications Current Medications Medications (Trade) Dose Ordered Sig/Phil Route PRN Reason Start Time Stop Time Status Last Admin Dose Admin Sodium Chloride (NS Flush) 2 ml UNSCH PRN IVF FLUSH AFTER USING IV ACCESS 09/04/16 15:45 Diltiazem HCl (Cardizem) 60 mg Q6HR PO 09/04/16 18:00 09/05/16 06:58 Metoprolol Tartrate (Lopressor) 25 mg Q12HR PO 09/04/16 21:00 09/05/16 08:50 Dorzolamide/ Timolol (Cosopt 2-0.5% Opt Soln) 1 drop Q12HR EACH EYE 09/04/16 21:00 09/04/16 22:34 Latanoprost (Xalatan 0.005% Opth Soln) 1 drop HS EACH EYE 09/04/16 21:00 09/04/16 22:35 Aspirin (Aspirin Chew) 81 mg DAILY CHEW 09/05/16 09:00 09/05/16 08:50 Acetaminophen/ Hydrocodone Bitart ([place] 5-325 Mg) 1 tab Q6H PRN PO pain level 3-10 09/04/16 20:15 09/04/16 23:47 (Mili Merino) Medical Decision Making MDM Remarks 81-year-old male who fell, CT C-spine shows a C2 fracture, nonfocal neurological exam (Mili Merino) Plan Plan Remarks continue nonsurgical management of C2 fracture maintain Patricia collar at all times Avoid falls Physical therapy Speech evaluation for dysphagia (Mili Merino) Attending Statement Continue neuro checks in a serial fashion. Unable to perform an MRI as he has a pacemaker which is not MR compatible. Continue Non surgical management. C2 fracture. Continue bracing the spine with the [place] J collar. I offered him the possibility of a halo brace which he does not want. He will likely not tolerate a halo brace well Respiratory. Continue pulmonary toilette, nasotracheal suction, and breathing treatments with nebulizers. PT and OT Nutrition. Continue Oral diet Renal. Continue to monitor closely urine output, BUN and creatinine Endocrine. Continue to Monitor serial Acu checks and SSI for tight control ID continue to monitor for signs of infection Continue Protonix for stress ulcer prophylaxis Continue Rolo hose and SCD's for DVT prophylaxis (Vik Degroot MD) Mili Merino September 05, 2016 10:59 Vik Degroot MD September 05, 2016 14:29
--- NOTE | 2016-09-05 15:48 | HHI.PR ---
Subjective Remarks Pt agitated at times. Objective Vitals Vital Signs Date Time Temp Pulse Resp B/P Pulse Ox O2 Delivery O2 Flow Rate FiO2 09/05/16 12:00 98.7 75 16 127/61 92 09/05/16 09:59 75 09/05/16 08:17 93 Nasal Cannula 3.00 09/05/16 08:00 95 09/05/16 08:00 98.2 94 24 110/81 94 09/05/16 06:00 95 09/05/16 04:00 93 09/05/16 03:00 97.9 93 24 109/61 95 09/05/16 02:00 95 09/05/16 00:47 12 09/05/16 00:00 98 09/04/16 23:00 98.1 73 11 109/59 96 09/04/16 23:00 73 09/04/16 21:39 88 18 132/72 99 Nasal Cannula 2 09/04/16 19:50 92 18 134/82 98 09/04/16 16:55 Nasal Cannula 2 09/04/16 16:51 97 20 134/76 92 Nasal Cannula 2 09/04/16 16:01 90 20 167/50 99 Nasal Cannula 2 09/04/16 09/04/16 09/05/16 15:00 23:00 07:00 Intake Total 120 ml Output Total 350 ml Balance -230 ml Intake Oral 120 ml Output Urine Total 350 ml Result Diagram: 09/05/16 0339 09/05/16 0339 Imaging Last Impressions Head CT 09/04/16 1534 Signed Impressions: Service Date/Time: Sunday, September 04, 2016 16:01 - CONCLUSION: Aging brain with generalized volume loss. No evidence of acute infarct, hemorrhage, mass or edema. Layo Damon MD Chest X-Ray 09/04/16 1534 Signed Impressions: Service Date/Time: Sunday, September 04, 2016 15:48 - CONCLUSION: Diffuse interstitial lung disease characteristic of pulmonary edema. Mild cardiomegaly and small bilateral effusions. AICD. Status post CABG. Layo Damon MD Cervical Spine CT 09/04/16 1534 Signed Impressions: Service Date/Time: Sunday, September 04, 2016 16:03 - CONCLUSION: 1. Minimally displaced fracture through the base of the odontoid process of C2. No posterior displacement. 2. Multilevel degenerative findings. Jovan Mckinnon MD Maxillofacial CT 09/04/16 0000 Signed Impressions: Service Date/Time: Sunday, September 04, 2016 16:04 - CONCLUSION: No evidence of fracture. Jovan Mckinnon MD Objective Remarks GENERAL: This is a well-nourished, well-developed patient, in no apparent distress. CARDIOVASCULAR: Regular rate and rhythm without murmurs, gallops, or rubs. RESPIRATORY: Clear to auscultation. Breath sounds equal bilaterally. No wheezes , rales, or rhonchi. GASTROINTESTINAL: Abdomen soft, non-tender, nondistended. Normal active bowel sounds MUSCULOSKELETAL: Extremities without clubbing, cyanosis, or edema. NEURO: Alert & Oriented x3, but confused at times. A/P Problem List: (1) Odontoid fracture Status: Acute Plan: - comgmt with Dr. Degroot - conservative mgmt for now - Pt does NOT want halo brace - will d/w Dr. Degroot (2) Atrial fibrillation with RVR Status: Acute Plan: - comgmt with Cardiology - received IV cardizem, now on PO cardizem - metoprolol, ASA - coumadin on hold in case pt undergoes surgery - continue to observe on telemetry (3) Troponin level elevated Status: Acute Plan: - comgmt with Cardiology\ - flat pattern, likely demand mediated. (4) Hypertension Status: Chronic Plan: - stable - metoprolol, cardizem (5) Diabetic nephropathy associated with type 2 diabetes mellitus Status: Chronic Plan: Apparently diet controlled. A1c was 6.0 in May. We'll check Accu-Cheks twice a day for now. Problem Qualifiers (1) Odontoid fracture: Qualified Code: S12.100A - Odontoid fracture, closed, initial encounter (2) Hypertension: Qualified Code: I10 - Essential hypertension Carlos Ennis DO September 05, 2016 15:48
[2016-09-05] MEDS: ACETAMINOPHEN/HYDROcodone 325 MG/5 MG TAB PO PRN (17:28)
--- NOTE | 2016-09-05 19:47 | EKG ---
Date Performed: 09/04/2016 Time Performed: 23:27:28 PTAGE: 81 years EKG: Atrial fibrillation Ventricular pacing Abnormal ECG Compared to prior tracing no significan t change DOCTOR: Tiffany Peres Interpretating Date/Time 09/05/2016 19:45:45
--- NOTE | 2016-09-05 19:57 | EKG ---
Date Performed: 09/04/2016 Time Performed: 21:22:12 PTAGE: 81 years EKG: ATRIAL FIBRILLATION ELECTRONIC VENTRICULAR PACEMAKER MODERATE INTRAVENTRICULAR CONDUCTION D ELAY ST DEVIATION AND MODERATE T-WAVE ABNORMALITY ABNORMAL ECG PREVIOUS TRACING : 09/04/2016 15.35 Compared to the previous tracing rate slower DOCTOR: Tiffany Peres Interpretating Date/Time 09/05/2016 19:55:00
[2016-09-05] MEDS ORDERED: SODIUM POLYSTYRENE SULFONATE SUSP 15 GM/60 ML CUP PO ONE (20:00)
[2016-09-05] MEDS: LORazepam 2 MG/ML VIAL IV PUSH PRN (20:10)
[2016-09-05] MEDS: LATANOPROST 0.005% OPHT SOLN 2.5 ML BTL EACH EYE SCH (21:00)
[2016-09-06] VITALS (13 sets, daily range): BP systolic 126–158; BP diastolic 59–108; PULSE 72–113; RESP 16–42; TEMP 97–100; O2SAT 92–100
[2016-09-06] MEDS: LORazepam 2 MG/ML VIAL IV PUSH PRN ×2 (04:32→20:54)
[2016-09-06 05:08] LABS: MAGNESIUM 2.6 MG/DL (1.5-2.5); POTASSIUM 5.8 MEQ/L (3.5-5.1)
[2016-09-06] MEDS: DILTIAZEM HCL 60 MG TAB PO SCH ×4 (06:00→18:00)
[2016-09-06] MEDS: SODIUM CHLOR 0.9% 1000 ML INJ 1,000 ML IV SCH ×2 (06:45→20:05)
--- NOTE | 2016-09-06 08:10 | PD.CARD.PN ---
Subjective Subjective Remarks A fib persists with slow ventricular response Objective Vital Signs / I&O Vital Signs Date Time Temp Pulse Resp B/P Pulse Ox O2 Delivery O2 Flow Rate FiO2 09/06/16 06:00 83 09/06/16 04:00 97.0 73 19 145/85 96 09/06/16 04:00 72 09/06/16 02:00 75 09/06/16 00:00 95 09/06/16 00:00 97.6 97 21 158/88 95 09/05/16 22:00 71 09/05/16 20:00 98.2 68 18 158/79 92 09/05/16 20:00 68 09/05/16 19:00 97 Nasal Cannula 3.00 09/05/16 18:29 16 09/05/16 16:12 92 09/05/16 16:08 98.9 82 18 127/77 96 09/05/16 12:00 98.7 75 16 127/61 92 09/05/16 09:59 75 09/05/16 08:17 93 Nasal Cannula 3.00 I/O 09/05/16 09/05/16 09/05/16 09/06/16 09/06/16 09/06/16 07:00 15:00 23:00 07:00 15:00 23:00 Intake Total 120 ml 180 ml 0 ml Output Total 350 ml 550 ml 220 ml 100 ml Balance -230 ml -550 ml -40 ml -100 ml Intake Oral 120 ml 180 ml 0 ml Output Urine Total 350 ml 550 ml 220 ml 100 ml # Bowel Movements 0 0 Laboratory Laboratory Tests Test 09/05/16 09/06/16 21:49 04:18 Potassium Level 5.5 MEQ/L 5.8 MEQ/L Random Glucose 177 MG/DL 166 MG/DL Sodium Level 139 MEQ/L Chloride Level 108 MEQ/L Carbon Dioxide Level 20.0 MEQ/L Anion Gap 11 MEQ/L Blood Urea Nitrogen 38 MG/DL Creatinine 2.00 MG/DL Estimat Glomerular Filtration 32 ML/MIN Rate Calcium Level 10.2 MG/DL Magnesium Level 2.6 MG/DL Assessment and Plan Assessment and Plan Stable CV. Leandro Scott MD September 06, 2016 08:10
--- NOTE | 2016-09-06 08:52 | HHI.NSPN ---
(Mili Merino) Note Status Status: Progress Note (Mili Merino) Interval History Interval History Mr. Head is a 81-year-old male who presents today to the emergency room for evaluation of C2 fracture. The patient reports he fell 4 days ago at home and landed on his face. He contacted his primary care physician who ordered x-rays of the cervical spine. The x-ray showed possible odontoid fracture. He is currently complaining of cervical pain. He denies any pain, paresthesias, or focal weakness in his upper or lower extremities. He has been placed on a [place] J collar. He also is in A. fib RVR, he has a pacemaker placement. CT of the cervical spine shows a C2 fracture. CT Head negative for acute intracranial pathology. 09/05: Unable to obtain an MRI due to pacemaker. Cervical pain stable. Complains of coughing slightly choking when drinking. 09/06: moving all four extremities, confused. worsened respiratory status today. (Mili Merino) Labs, Micro, & Vital Signs Results Date Time Temp Pulse Resp B/P Pulse Ox O2 Delivery O2 Flow Rate FiO2 09/06/16 06:00 83 09/06/16 04:00 97.0 73 19 145/85 96 09/06/16 04:00 72 09/06/16 02:00 75 09/06/16 00:00 95 09/06/16 00:00 97.6 97 21 158/88 95 09/05/16 22:00 71 09/05/16 20:00 98.2 68 18 158/79 92 09/05/16 20:00 68 09/05/16 19:00 97 Nasal Cannula 3.00 09/05/16 18:29 16 09/05/16 16:12 92 09/05/16 16:08 98.9 82 18 127/77 96 09/05/16 12:00 98.7 75 16 127/61 92 09/05/16 09:59 75 09/06/16 07:00 Intake Total 180 ml Output Total 870 ml Balance -690 ml Constitutional Vital Signs Date Time Temp Pulse Resp B/P Pulse Ox O2 Delivery O2 Flow Rate FiO2 09/06/16 06:00 83 09/06/16 04:00 97.0 73 19 145/85 96 09/06/16 04:00 72 09/06/16 02:00 75 09/06/16 00:00 95 09/06/16 00:00 97.6 97 21 158/88 95 09/05/16 22:00 71 09/05/16 20:00 98.2 68 18 158/79 92 09/05/16 20:00 68 09/05/16 19:00 97 Nasal Cannula 3.00 09/05/16 18:29 16 09/05/16 16:12 92 09/05/16 16:08 98.9 82 18 127/77 96 09/05/16 12:00 98.7 75 16 127/61 92 09/05/16 09:59 75 09/06/16 07:00 Intake Total 180 ml Output Total 870 ml Balance -690 ml (Miil Merino) Review of Systems/Exam Exam Mr. Head is confused. Moving extremities intermittently. Cranial nerve examination: pupils equal, round, and reactive to light. Facial motor are normal and symmetrical. Cervical spine immobilized by a [place] J collar Motor: moves all four extremities, difficult to assess detail exam due to current clinical condition Sensory: withdraws to pain x 4 extremities There is a bilateral plantar flexion response. Hoffmanns sign is negative. There is no ankle clonus Cerebellar examination is very limited (Mili Merino) Medications Current Medications Current Medications Medications (Trade) Dose Ordered Sig/Phil Route PRN Reason Start Time Stop Time Status Last Admin Dose Admin Sodium Chloride (NS Flush) 2 ml UNSCH PRN IVF FLUSH AFTER USING IV ACCESS 09/04/16 15:45 Diltiazem HCl (Cardizem) 60 mg Q6HR PO 09/04/16 18:00 09/05/16 17:20 Metoprolol Tartrate (Lopressor) 25 mg Q12HR PO 09/04/16 21:00 09/05/16 08:50 Dorzolamide/ Timolol (Cosopt 2-0.5% Opth Soln) 1 drop Q12HR EACH EYE 09/04/16 21:00 09/05/16 21:00 Latanoprost (Xalatan 0.005% Opth Soln) 1 drop HS EACH EYE 09/04/16 21:00 09/05/16 21:00 Aspirin (Aspirin Chew) 81 mg DAILY CHEW 09/05/16 09:00 09/05/16 08:50 Acetaminophen/ Hydrocodone Bitart ([place] 5-325 Mg) 1 tab Q6H PRN PO pain level 3-10 09/04/16 20:15 09/05/16 17:28 Lorazepam 1 mg 1 mg Q4H PRN IV PUSH agitation 09/05/16 20:00 09/06/16 04:32 Sodium Chloride (NS 1000 ml Inj) 1,000 ml @ 75 mls/hr [id number] IV 09/06/16 06:45 09/06/16 06:45 (Mili Merino) Medical Decision Making MDM Remarks 81-year-old male who fell, CT C-spine shows a C2 fracture, nonfocal neurological exam (Mili Merino) Plan Plan Remarks continue nonsurgical management of C2 fracture with [place] collar maintain [place] collar at all times dw Dr. Ennis and Dr. Martinez critical care mgt (Mili Merino) Attending Statement The exam, history, and the medical decision-making described in the above note were completed with the assistance of the mid-level provider. I reviewed and agree with the findings presented. I attest that I had a [id number] encounter with the patient on the same day, and personally performed and documented my assessment and findings in the medical record. (Vik Degroot MD) Mili Merino September 06, 2016 08:52 Vik Degroot MD September 06, 2016 10:53 Vik Degroot MD September 06, 2016 10:53
[2016-09-06] MEDS: METOPROLOL TARTRATE 25 MG TAB PO SCH ×2 (09:00→20:37)
[2016-09-06] MEDS: DORZOLAMIDE/TIMOLOL OPTH SOLN 10 ML BTL EACH EYE SCH ×2 (09:00→20:26)
[2016-09-06] MEDS: ASPIRIN 81 MG CHEW TAB CHEW SCH (09:00)
--- NOTE | 2016-09-06 09:17 | HHI.PR ---
Subjective Remarks Pt with increased agitation this AM. Pt with tachypnea. Objective Vitals Vital Signs Date Time Temp Pulse Resp B/P Pulse Ox O2 Delivery O2 Flow Rate FiO2 09/06/16 06:00 83 09/06/16 04:00 97.0 73 19 145/85 96 09/06/16 04:00 72 09/06/16 02:00 75 09/06/16 00:00 95 09/06/16 00:00 97.6 97 21 158/88 95 09/05/16 22:00 71 09/05/16 20:00 98.2 68 18 158/79 92 09/05/16 20:00 68 09/05/16 19:00 97 Nasal Cannula 3.00 09/05/16 18:29 16 09/05/16 16:12 92 09/05/16 16:08 98.9 82 18 127/77 96 09/05/16 12:00 98.7 75 16 127/61 92 09/05/16 09:59 75 09/05/16 09/05/16 09/06/16 15:00 23:00 07:00 Intake Total 180 ml 0 ml Output Total 550 ml 220 ml 100 ml Balance -550 ml -40 ml -100 ml Intake Oral 180 ml 0 ml Output Urine Total 550 ml 220 ml 100 ml # Bowel Movements 0 0 Result Diagram: 09/05/16 0339 09/06/16 0418 Imaging Last Impressions Head CT 09/04/161533 Signed Impressions: Service Date/Time: Sunday, September 04, 2016 16:01 - CONCLUSION: Aging brain with generalized volume loss. No evidence of acute infarct, hemorrhage, mass or edema. Layo Damon MD Chest X-Ray 09/04/161533 Signed Impressions: Service Date/Time: Sunday, September 04, 2016 15:48 - CONCLUSION: Diffuse interstitial lung disease characteristic of pulmonary edema. Mild cardiomegaly and small bilateral effusions. AICD. Status post CABG. Layo Damon MD Cervical Spine CT 09/04/16 1534 Signed Impressions: Service Date/Time: Sunday, September 04, 2016 16:03 - CONCLUSION: 1. Minimally displaced fracture through the base of the odontoid process of C2. No posterior displacement. 2. Multilevel degenerative findings. Jovan Mckinnon MD Maxillofacial CT 09/04/16 0000 Signed Impressions: Service Date/Time: Sunday, September 04, 2016 16:04 - CONCLUSION: No evidence of fracture. Jovan Mckinnon MD Objective Remarks GENERAL: agitated and tachypneic CARDIOVASCULAR: Regular rate and rhythm without murmurs, gallops, or rubs. RESPIRATORY: tachypneic with course respiratory sounds GASTROINTESTINAL: Abdomen soft, non-tender, nondistended. Normal active bowel sounds MUSCULOSKELETAL: Extremities without clubbing, cyanosis, or edema. NEURO: alert but confused and NOT answering questions appropriately. A/P Problem List: (1) Respiratory distress Status: Acute Plan: - tachypnea - CXR (09/06/16) --> volume overload - IV lasix 80mg - obtain ABG - pulse ox stable - case d/w pt's Son (POA) Black Banerjee by phone son requests that pt be made DNR - overall poor prognosis - observe clinical response (2) Hyperkalemia Status: Acute Plan: - albuterol neb - calcium gluconate - repeat BMP at noon (3) Odontoid fracture Status: Acute Plan: - comgmt with Dr. Degroot - Pt does NOT want halo brace (09/05/16) - d/w Dr. Degroot (09/06/16) - continue conservative mgmt with collar - Pt NOT a surgical candidate (4) Atrial fibrillation with RVR Status: Acute Plan: - comgmt with Cardiology - received IV cardizem, now on PO cardizem - metoprolol, ASA - coumadin on hold in case pt undergoes surgery - continue to observe on telemetry (5) Troponin level elevated Status: Acute Plan: - comgmt with Cardiology\ - flat pattern, likely demand mediated. (6) Hypertension Status: Chronic Plan: - stable - metoprolol, cardizem (7) Diabetic nephropathy associated with type 2 diabetes mellitus Status: Chronic Plan: Apparently diet controlled. A1c was 6.0 in May. We'll check Accu-Cheks twice a day for now. Problem Qualifiers (1) Odontoid fracture: Qualified Code: S12.100A - Odontoid fracture, closed, initial encounter (2) Hypertension: Qualified Code: I10 - Essential hypertension Carlos Ennis DO September 06, 2016 09:17
[2016-09-06] MEDS ORDERED: FUROSEMIDE 40 MG/4 ML VIAL ONE (09:24)
[2016-09-06] MEDS ORDERED: RESP: ALBUTEROL 2.5 MG/3 ML NEB (SCH) NEB ONE (09:45)
--- NOTE | 2016-09-06 09:58 | RADRPT ---
EXAM DATE/TIME: 09/06/2016 09:13 [facility] COMPARISON: CHEST SINGLE AP, September 04, 2016, 15:48. INDICATIONS : Shortness of breath. MEDICAL HISTORY : Hypertension. Diabetes mellitus type II. A-Fib. SURGICAL HISTORY : Pacemaker. ENCOUNTER: Subsequent ACUITY: 2 days PAIN SCORE: Non-responsive. LOCATION: Bilateral chest FINDINGS: A single view of the chest demonstrates cardiomegaly and previous heart valve replacement. Bilateral perihilar edema. Left-sided pacemaker/defibrillator unchanged. Small bilateral pleural effusions. Oss eous structures are intact. CONCLUSION: 1. Cardiomegaly with bilateral perihilar edema, not significantly changed. 2. Small bilateral pleural effusions. Nasim Fontaine MD on September 06, 2016 at 9:47 Board Certified Radiologist. This report was verified electronically.
[2016-09-06] MEDS ORDERED: FUROSEMIDE 40 MG/4 ML VIAL IV PUSH ONE (10:00)
[2016-09-06] MEDS ORDERED: CALCIUM GLUCONATE INJ 2 GM in DEXTROSE 5% IN WATER 100ML INJ 100 ML IV ONE ×2 (10:00)
[2016-09-06 10:08] LABS: BLOOD GAS BASE EXCESS -6.4 mmol/L (-2-2); BLOOD GAS CARBOXYHEMOGLOBIN 1.2 % (0-4); BLOOD GAS HCO3 18 mmol/L (22-26); BLOOD GAS METHEMOGLOBIN 0.7 % (0-2); BLOOD GAS O2 HGB SATURATION 89 % (90-100); BLOOD GAS OXYGEN CONTENT 15.5 Vol % (12.0-20.0); BLOOD GAS PCO2 29 mmHg (38-42); BLOOD GAS PO2 66 mmHg (61-120); BLOOD GAS TOTAL HGB 12.3 G/DL (12.0-16.0); CRITICAL VALUE YES; DRAW SITE LT RADIAL; LITER FLOW 4 L/M; NUMBER OF ARTERIAL PUNCTURES 1; OXYGEN DEVICE NASAL CANNULA; STAT YES; TEMP CORR TO 98.6; ULNAR PULSE PRESENT
[2016-09-06] MEDS: MORPHINE SULFATE 4 MG/ML INJ IV PUSH PRN (10:20)
[2016-09-06 15:28] LABS: BICARBONATE 22.9 MEQ/L (21.0-32.0); MAGNESIUM 2.5 MG/DL (1.5-2.5); POTASSIUM 4.8 MEQ/L (3.5-5.1)
[2016-09-06] MEDS: LATANOPROST 0.005% OPHT SOLN 2.5 ML BTL EACH EYE SCH (20:27)
[2016-09-07] VITALS (7 sets, daily range): BP systolic 135–170; BP diastolic 58–114; PULSE 72–97; RESP 24–33; TEMP 98–100.8; O2SAT 92–95
[2016-09-07] MEDS: DILTIAZEM HCL 60 MG TAB PO SCH ×2 (05:04)
[2016-09-07] MEDS: MORPHINE SULFATE 4 MG/ML INJ IV PUSH PRN (05:05)
[2016-09-07 05:17] LABS: BASOPHIL % 0.4 % (0.0-2.0); EOSINOPHIL # 0.1 TH/MM3 (0-0.4); EOSINOPHIL % 0.6 % (0.0-4.0); HEMATOCRIT 38.5 % (39.0-51.0); HEMO FLAGS DIFF FINAL; LYMPH % 7.2 % (9.0-44.0); LYMPHOCYTE # 0.9 TH/MM3 (1.0-4.8); MEAN CELL VOLUME 95.9 FL (80.0-100.0); MEAN CORPUSCULAR HEMOGLOBIN 31.7 PG (27.0-34.0); MEAN CORPUSCULAR HGB CONC 33.1 % (32.0-36.0); MONO % 7.1 % (0.0-8.0); NEUT % 84.7 % (16.0-70.0); PLATELET COUNT 112 TH/MM3 (150-450); RED BLOOD COUNT 4.01 MIL/MM3 (4.50-5.90); RED CELL DISTRIBUTION WIDTH 13.8 % (11.6-17.2); WHITE BLOOD COUNT 11.8 TH/MM3 (4.0-11.0)
[2016-09-07 05:51] LABS: BICARBONATE 25.2 MEQ/L (21.0-32.0); MAGNESIUM 2.4 MG/DL (1.5-2.5); POTASSIUM 4.4 MEQ/L (3.5-5.1)
[2016-09-07] MEDS: DORZOLAMIDE/TIMOLOL OPTH SOLN 10 ML BTL EACH EYE SCH (09:11)
[2016-09-07] MEDS: ASPIRIN 81 MG CHEW TAB CHEW SCH (09:12)
[2016-09-07] MEDS: METOPROLOL TARTRATE 25 MG TAB PO SCH (09:12)
--- NOTE | 2016-09-07 09:20 | HHI.NSPN ---
(Nasim Tovar) History Chief Complaint: C2 fracture. (Nasim Tovar) Interval History Mr. Head is a 81-year-old male who presents today to the emergency room for evaluation of C2 fracture. The patient reports he fell 4 days ago at home and landed on his face. He contacted his primary care physician who ordered x-rays of the cervical spine. The x-ray showed possible odontoid fracture. He is currently complaining of cervical pain. He denies any pain, paresthesias, or focal weakness in his upper or lower extremities. He has been placed on a [place] J collar. He also is in A. fib RVR, he has a pacemaker placement. CT of the cervical spine shows a C2 fracture. CT Head negative for acute intracranial pathology. 09/05: Unable to obtain an MRI due to pacemaker. Cervical pain stable. Complains of coughing slightly choking when drinking. 09/06: moving all four extremities, confused. worsened respiratory status today. 09/07: Pt opens eyes to voice. Mumbles incomprehensible words to questions. Not following commands. (Nasim Tovar) System Review Comments Not able to obtain given clinical condition. (Nasim Tovar) Exam Results Vital Signs Date Time Temp Pulse Resp B/P Pulse Ox O2 Delivery O2 Flow Rate FiO2 09/07/16 07:00 92 Nasal Cannula 4.00 09/07/16 05:50 12 09/07/16 04:00 98.0 96 154/76 Intake and Output 09/06/16 09/06/16 09/06/16 07:59 15:59 23:59 Intake Total 0 ml 306 ml 72 ml Output Total 100 ml 950 ml 1000 ml Balance -100 ml -644 ml -928 ml (Nasim Tovar) Physical Examination Resp: Mild coarse bs bilaterally Heart: NSR no murmurs Abd: Soft positive bs Skin: No cyanosis or erythema Muscle: Moves all 4 extremities spontaneously. Not following for muscle testing. [place] J collar in place. Neuro: Pt awake. Not following commands. Pupils 3mm bilaterally. Mumbles incomprehensible words to questions. (Nasim Tovar) Lab, Micro, Other Results Last Impressions Chest X-Ray 09/06/16 0000 Signed Impressions: Service Date/Time: August 09:13 - CONCLUSION: 1. Cardiomegaly with bilateral perihilar edema, not significantly changed. 2. Small bilateral pleural effusions. Nasim Fontaine MD Head CT 09/04/16 1534 Signed Impressions: Service Date/Time: Sunday, September 04, 2016 16:01 - CONCLUSION: Aging brain with generalized volume loss. No evidence of acute infarct, hemorrhage, mass or edema. Layo Damon MD Cervical Spine CT 09/04/16 1534 Signed Impressions: Service Date/Time: Sunday, September 04, 2016 16:03 - CONCLUSION: 1. Minimally displaced fracture through the base of the odontoid process of C2. No posterior displacement. 2. Multilevel degenerative findings. Jovan Mckinnon MD Maxillofacial CT 09/04/16 0000 Signed Impressions: Service Date/Time: Sunday, September 04, 2016 16:04 - CONCLUSION: No evidence of fracture. Jovan Mckinnon MD Laboratory Tests Test 09/06/16 09/06/16 09/07/16 10:02 14:44 04:56 Blood Gas Puncture Site LT RADIAL Blood Gas Patient Temperature 98.6 Blood Gas HCO3 18 mmol/L Blood Gas Base Excess -6.4 mmol/L Blood Gas Oxygen Saturation 89 % Arterial Blood pH 7.40 Arterial Blood Partial 29 mmHg Pressure CO2 Arterial Blood Partial 66 mmHg Pressure O2 Arterial Blood Oxygen Content 15.5 Vol % Arterial Blood 1.2 % Carboxyhemoglobin Arterial Blood Methemoglobin 0.7 % Blood Gas Hemoglobin 12.3 G/DL Oxygen Delivery Device NASAL CANNULA Blood Gas Liter Flow 4 L/M Sodium Level 139 MEQ/L 140 MEQ/L Potassium Level 4.8 MEQ/L 4.4 MEQ/L Chloride Level 108 MEQ/L 106 MEQ/L Carbon Dioxide Level 22.9 MEQ/L 25.2 MEQ/L Anion Gap 8 MEQ/L 9 MEQ/L Blood Urea Nitrogen 43 MG/DL 45 MG/DL Creatinine 1.83 MG/DL 1.79 MG/DL Estimat Glomerular Filtration 36 ML/MIN 37 ML/MIN Rate Random Glucose 126 MG/DL 108 MG/DL Calcium Level 10.6 MG/DL 10.3 MG/DL Magnesium Level 2.5 MG/DL 2.4 MG/DL White Blood Count 11.8 TH/MM3 Red Blood Count 4.01 MIL/MM3 Hemoglobin 12.7 GM/DL Hematocrit 38.5 % Mean Corpuscular Volume 95.9 FL Mean Corpuscular Hemoglobin 31.7 PG Mean Corpuscular Hemoglobin 33.1 % Concent Red Cell Distribution Width 13.8 % Platelet Count 112 TH/MM3 Mean Platelet Volume 8.7 FL Neutrophils (%) (Auto) 84.7 % Lymphocytes (%) (Auto) 7.2 % Monocytes (%) (Auto) 7.1 % Eosinophils (%) (Auto) 0.6 % Basophils (%) (Auto) 0.4 % Neutrophils # (Auto) 10.0 TH/MM3 Lymphocytes # (Auto) 0.9 TH/MM3 Monocytes # (Auto) 0.8 TH/MM3 Eosinophils # (Auto) 0.1 TH/MM3 Basophils # (Auto) 0.0 TH/MM3 CBC Comment DIFF FINAL Differential Comment 09/06/16 09/06/16 09/07/16 14:59 22:59 06:59 Intake Total 306 ml 72 ml 80 ml Output Total 950 ml 1000 ml 550 ml Balance -644 ml -928 ml -470 ml IV Total 306 ml 72 ml 80 ml Output Urine Total 950 ml 1000 ml 550 ml # Bowel Movements 0 (Nasim Tovar) Medical Decision Making Impression and Plan A: 81 y/o M with C2 fracture Nonsurgical management with cervical collar P: Continue with current care Medical care. Rehab (Nasim Tovar) Attending Statement The exam, history, and the medical decision-making described in the above note were completed with the assistance of the mid-level provider. I reviewed and agree with the findings presented. I attest that I had a [id number] encounter with the patient on the same day, and personally performed and documented my assessment and findings in the medical record. Family is contemplating hospice with comfort measures only. (Yasmani Altman MD) Nasim Tovar September 07, 2016 09:20 Yasmani Altman MD September 07, 2016 18:36
[2016-09-07] MEDS: SODIUM CHLOR 0.9% 1000 ML INJ 1,000 ML IV SCH (09:25)
[2016-09-07] MEDS: LORazepam 2 MG/ML VIAL IV PUSH PRN (09:46)
--- NOTE | 2016-09-07 09:54 | RADRPT ---
EXAM DATE/TIME: 09/07/2016 09:16 [facility] COMPARISON: CHEST SINGLE AP, September 06, 2016, 9:13. INDICATIONS : Volume overload. MEDICAL HISTORY : Fracture through the base of the odontoid process of C2. SURGICAL HISTORY : CABG. Pacemaker. ENCOUNTER: Subsequent ACUITY: 3 days PAIN SCORE: 0/10 LOCATION: Bilateral chest FINDINGS: A single view of the chest demonstrates the lungs to be symmetrically aerated with persistent interst itial prominence, particularly in a perihilar distribution. Bilateral pleural effusions with possible some improvement on the right. Left subclavian bipolar pacer is radiographically intact. Patient has had a valvular prostheses. Heart size is prominent. CONCLUSION: 1. Cardiomegaly with interstitial prominence predominantly perihilar and right lower lobe distributio n and bilateral pleural effusions all characteristic of some degree of CHF. 2. Suggestion of some improving effusion on the right, however. 3. Stable postsurgical changes with findings of CABG and valvular prostheses as well as a left subcla vian bipolar pacer. Michael Hicks MD on September 07, 2016 at 9:50 Board Certified Radiologist. This report was verified electronically.
--- NOTE | 2016-09-07 13:15 | HHI.PR ---
Subjective Remarks Pt has further declined from yesterday. Unresponsive. obvious respiratory distress despite venti mask. Pt is unable to swallow. Objective Vitals Vital Signs Date Time Temp Pulse Resp B/P Pulse Ox O2 Delivery O2 Flow Rate FiO2 09/07/16 12:00 89 09/07/16 12:00 100.8 78 32 148/77 95 09/07/16 10:00 83 09/07/16 10:00 93 Venturi Mask 6.00 50 09/07/16 08:00 96 09/07/16 08:00 100.0 79 26 170/114 92 09/07/16 07:00 92 Nasal Cannula 4.00 09/07/16 05:50 12 09/07/16 04:00 98.0 96 24 154/76 95 09/07/16 00:00 98.5 97 26 135/58 93 09/06/16 20:00 100.0 107 16 154/108 96 09/06/16 19:30 Nasal Cannula 4.00 09/06/16 19:30 96 Nasal Cannula 4.00 09/06/16 18:00 113 09/06/16 16:00 99.5 92 42 145/64 92 09/06/16 14:00 90 09/06/16 09/06/16 09/07/16 15:00 23:00 07:00 Intake Total 306 ml 72 ml 80 ml Output Total 950 ml 1000 ml 550 ml Balance -644 ml -928 ml -470 ml IV Total 306 ml 72 ml 80 ml Output Urine Total 950 ml 1000 ml 550 ml # Bowel Movements 0 Result Diagram: 09/07/16 0456 09/07/16 0456 Imaging Last Impressions Head CT 09/04/161533 Signed Impressions: Service Date/Time: Sunday, September 04, 2016 16:01 - CONCLUSION: Aging brain with generalized volume loss. No evidence of acute infarct, hemorrhage, mass or edema. Layo Damon MD Chest X-Ray 09/04/161533 Signed Impressions: Service Date/Time: Sunday, September 04, 2016 15:48 - CONCLUSION: Diffuse interstitial lung disease characteristic of pulmonary edema. Mild cardiomegaly and small bilateral effusions. AICD. Status post CABG. Layo Damon MD Cervical Spine CT 09/04/161533 Signed Impressions: Service Date/Time: Sunday, September 04, 2016 16:03 - CONCLUSION: 1. Minimally displaced fracture through the base of the odontoid process of C2. No posterior displacement. 2. Multilevel degenerative findings. Jovan Mckinnon MD Maxillofacial CT 09/04/16 0000 Signed Impressions: Service Date/Time: Sunday, September 04, 2016 16:04 - CONCLUSION: No evidence of fracture. Jovan Mckinnon MD Objective Remarks GENERAL: agitated and tachypneic CARDIOVASCULAR: Regular rate and rhythm without murmurs, gallops, or rubs. RESPIRATORY: tachypneic with course respiratory sounds GASTROINTESTINAL: Abdomen soft, non-tender, nondistended. Normal active bowel sounds MUSCULOSKELETAL: Extremities without clubbing, cyanosis, or edema. NEURO: unresponsive A/P Problem List: (1) Respiratory distress Status: Acute Plan: - tachypnea - CXR (09/06/16) --> volume overload - IV lasix 80mg - case d/w pt's Son (POA) Black Banerjee by phone (09/07/16) - DNR - will transfer to [facility] - Palliative measures - schedule morphine for comfort & prn for breakthrough pain - Pt is actively dying - Transfer to hospice care center for symptom mgmt, such as agitation, would be appropriate. - overall poor prognosis (2) Hyperkalemia Status: Acute Plan: - albuterol neb - calcium gluconate - resolved (3) Odontoid fracture Status: Acute Plan: - comgmt with Dr. Degroot - Pt does NOT want halo brace (09/05/16) - d/w Dr. Degroot (09/06/16) - continue conservative mgmt with collar - Pt NOT a surgical candidate (4) Atrial fibrillation with RVR Status: Acute Plan: - Pt unable to tolerate PO medications Problem Qualifiers (1) Odontoid fracture: Qualified Code: S12.100A - Odontoid fracture, closed, initial encounter Carlos Ennis DO September 07, 2016 13:15
[2016-09-07] MEDS ORDERED: MORPHINE SULFATE 4 MG/ML INJ IV PUSH SCH (14:00)
[2016-09-07] MEDS ORDERED: MORPHINE SULFATE 4 MG/ML INJ IV PUSH PRN (14:00)
[2016-09-07] MEDS ORDERED: MORP4INJ3 IV PUSH (15:40)
[2016-09-07] MEDS ORDERED: LATA.005%O EACH EYE (15:40)
[2016-09-07] MEDS ORDERED: DORZ2SOL7 EACH EYE (15:40)
--- NOTE | 2016-09-07 15:44 | HHI.DS ---
Discharge Summary Admission Date September 04, 2016 at 17:36 Discharge Date: September 07, 2016 Admitting Diagnosis odontoid fracture, A. fib with RVR (1) Respiratory distress Diagnosis: Principal (2) Hyperkalemia Diagnosis: Principal (3) Odontoid fracture Diagnosis: Principal (4) Atrial fibrillation with RVR Diagnosis: [facility] Dr. Leandro Scott, Cardiology Dr. Degroot, Neurosurgery Brief History Patient comes in by EMS from his primary care physician's office after having found a questionable C2 fracture on x-ray. Patient reportedly had a mechanical fall at his home 4 days ago landing on his face. Patient reports that he stumbled on a step going from one room to another in his home. No loss of consciousness. No loss of bowel or bladder function. He was having significant pain yesterday and last night so he contacted his primary care physician who ordered a cervical spine x-ray which demonstrated questionable odontoid fracture. He was therefore referred to the ER for evaluation. Patient is having excruciating pain in the left posterior neck since the fall. Patient also reporting pain over his nasal bone. Patient denies any radiation of the pain. Denies any chest pain, vision change, shortness of breath, headache, numbness or tingling or, loss of bowel or bladder, chest pain, shortness of breath, loss of consciousness, nausea, vomiting, abdominal pain, or back pain. In route to the hospital it was noted that patient was in A. fib with RVR. He has known history of atrial fibrillation and apparently failed ablation procedure in the past. Patient currently has a pacemaker and defibrillator. Patient denies any symptoms from this or noting his defibrillator to fire. Patient did drive himself to his primary care doctor's office today. Patient thinks his care trainer is Dr. Doan but is uncertain. On further questioning , patient reports that his care trainer is actually Dr. Scott that he apparently has seen Dr. Doan in the past. Patient uncertain of all his medical history, but was able to provide me with his primary care physician's name and some of his general medical issues. He reports that he lives alone with the exception of his pet dog. His had to go into a care home approximately 3 months ago. CBC/BMP: 09/07/16 0456 09/07/16 0456 Significant Findings Laboratory Tests Test 09/04/16 09/04/16 09/05/1610/17 21:12 22:32 03:39 21:49 Troponin I 0.13 NG/ML 0.08 NG/ML (0.02-0.05) (0.02-0.05) Urine RBC 6 /hpf (0-3) Urine Mucus FEW /lpf (OCC) Red Blood Count 3.70 MIL/MM3 (4.50-5.90) Hemoglobin 11.9 GM/DL (13.0-17.0) Hematocrit 35.6 % (39.0-51.0) Platelet Count 133 TH/MM3 (150-450) Neutrophils (%) (Auto) 84.6 % (16.0-70.0) Lymphocytes (%) (Auto) 7.7 % (9.0-44.0) Lymphocytes # (Auto) 0.6 TH/MM3 (1.0-4.8) Potassium Level 5.5 MEQ/L 5.5 MEQ/L (3.5-5.1) (3.5-5.1) Chloride Level 110 MEQ/L (98-107) Blood Urea Nitrogen 22 MG/DL (7-18) Estimat Glomerular Filtration 60 ML/MIN (>89) Rate Random Glucose 170 MG/DL 177 MG/DL (74-106) (74-106) Test 09/06/16 09/06/16 09/06/16 09/07/16 04:18 10:02 14:44 04:56 Potassium Level 5.8 MEQ/L (3.5-5.1) Chloride Level 108 MEQ/L 108 MEQ/L (98-107) (98-107) Carbon Dioxide Level 20.0 MEQ/L (21.0-32.0) Blood Urea Nitrogen 38 MG/DL (7-18) 43 MG/DL (7-18) 45 MG/DL (7-18) Creatinine 2.00 MG/DL 1.83 MG/DL 1.79 MG/DL (0.60-1.30) (0.60-1.30) (0.60-1.30) Estimat Glomerular Filtration 32 ML/MIN (>89) 36 ML/MIN (>89) 37 ML/MIN (>89) Rate Random Glucose 166 MG/DL 126 MG/DL 108 MG/DL (74-106) (74-106) (74-106) Calcium Level 10.2 MG/DL 10.6 MG/DL 10.3 MG/DL (8.5-10.1) (8.5-10.1) (8.5-10.1) Magnesium Level 2.6 MG/DL (1.5-2.5) Blood Gas HCO3 18 mmol/L (22-26) Blood Gas Base Excess -6.4 mmol/L (-2-2) Blood Gas Oxygen Saturation 89 % (90-100) Arterial Blood Partial 29 mmHg (38-42) Pressure CO2 White Blood Count 11.8 TH/MM3 (4.0-11.0) Red Blood Count 4.01 MIL/MM3 (4.50-5.90) Hemoglobin 12.7 GM/DL (13.0-17.0) Hematocrit 38.5 % (39.0-51.0) Platelet Count 112 TH/MM3 (150-450) Neutrophils (%) (Auto) 84.7 % (16.0-70.0) Lymphocytes (%) (Auto) 7.2 % (9.0-44.0) Neutrophils # (Auto) 10.0 TH/MM3 (1.8-7.7) Lymphocytes # (Auto) 0.9 TH/MM3 (1.0-4.8) PE at Discharge GENERAL: agitated and tachypneic CARDIOVASCULAR: Regular rate and rhythm without murmurs, gallops, or rubs. RESPIRATORY: tachypneic with course respiratory sounds GASTROINTESTINAL: Abdomen soft, non-tender, nondistended. Normal active bowel sounds MUSCULOSKELETAL: Extremities without clubbing, cyanosis, or edema. NEURO: unresponsive Hospital Course (1) Respiratory distress Status: Acute Plan: - tachypnea - CXR (09/06/16) --> volume overload - IV lasix 80mg - case d/w pt's Son (POA) Black Banerjee by phone (09/07/16) - DNR - Pt dying - prognosis, poor hours to days - schedule morphine for comfort & prn for breakthrough pain - Transfer to hospice care center for symptom mgmt, such as agitation, would be appropriate. (2) Hyperkalemia Status: Acute Plan: - albuterol neb - calcium gluconate - resolved (3) Odontoid fracture Status: Acute Plan: - comgmt with Dr. Degroot - Pt does NOT want halo brace (09/05/16) - d/w Dr. Degroot (09/06/16) - continue conservative mgmt with collar - Pt NOT a surgical candidate (4) Atrial fibrillation with RVR Status: Acute Plan: - Pt unable to tolerate PO medications Pt Condition on Discharge: Deteriorating Discharge Disposition: Hospice/Med Facility Discharge Instructions DIET: Follow Instructions for: As Tolerated, No Restrictions Activities you can perform: Weight Bearing as [place] New Medications: Dorzolamide-Timolol Opth Drops (Cosopt Opth Drops) 22.3-6.8 Mg/Ml Soln 1 DROP EACH EYE Q12HR glaucoma Days 10 Ref 0 ML Latanoprost Opth Drops (Xalatan Opth Drops) 0.005% Drops 1 DROP EACH EYE HS glaucoma Days 10 Ref 0 ML Morphine Sulfate (Morphine Sulfate) 4 Mg/Ml Inj 2 MG IV PUSH Q3H PRN IV MED FOR pain 1-10/agitation Days 3 INJECTION Carlos Ennis DO September 07, 2016 15:44
== END 2016-09-07 17:06 | disposition hospice, inpatient (51) | DRG 552 ==
LOC: NEPE 15:21 → NEDA 17:36 → NEDH 21:40 → N03B 23:14
PROVIDERS: ADMIT Hospitalist; ATTEND Hospitalist
DX: S12.120A Other displaced dens fracture, initial encounter for closed fracture (principal); E11.21 Type 2 diabetes mellitus with diabetic nephropathy; I27.2 Other secondary pulmonary hypertension; E87.70 Fluid overload, unspecified; E87.5 Hyperkalemia; I48.91 Unspecified atrial fibrillation; S00.81XA Abrasion of other part of head, initial encounter; I25.10 Atherosclerotic heart disease of native coronary artery without angina pectoris; E78.5 Hyperlipidemia, unspecified; I25.5 Ischemic cardiomyopathy; E11.9 Type 2 diabetes mellitus without complications; Z87.891 Personal history of nicotine dependence; Z66 Do not resuscitate; Z51.5 Encounter for palliative care; K21.9 Gastro-esophageal reflux disease without esophagitis; W01.0XXA Fall on same level from slipping, tripping and stumbling without subsequent striking against object, initial encounter; Y92.009 Unspecified place in unspecified non-institutional (private) residence as the place of occurrence of the external cause; H40.9 Unspecified glaucoma; I10 Essential (primary) hypertension; R45.1 Restlessness and agitation; Z79.01 Long term (current) use of anticoagulants; Z95.2 Presence of prosthetic heart valve; Z95.0 Presence of cardiac pacemaker; Z95.1 Presence of aortocoronary bypass graft
CPT/HCPCS: 36600; 70450; 70486; 71010; 72125; 80048; 81001; 82550; 82805; 82947; 82948; 83735; 84132; 84484; 85025; 85610; 85730; 87641; 93005; 94664; 96374; 96376; J0610; J1940; J2060; J2270; J7030; J7613; L0150; L0172